=== PATIENT | female | born 1960 | race Caucasian/White ===

== ENCOUNTER 2016-05-29 08:43 | Day surgery (SDC) | payer MEDICAID ==
[2016-05-26 10:20] VITALS: BMI 25.1
[~2016-05-29 08:43] MED LIST: LACTATED RINGERS 1,000 ML IV SCH
[2016-05-29] MEDS ORDERED: LIDOCAINE 1% 20 ML VIAL (10MG/ML) FOR IV START INTRADERMA ONE (10:18)
[2016-05-29 10:20] VITALS: RESP 16; TEMP 97.4
[2016-05-29] MEDS ORDERED: LIDOCAINE 1% INJ 10MG/ML (20 ML MDV) ONE (10:32)
[2016-05-29] MEDS ORDERED: PROPOFOL 10 MG/ML 20 ML VIAL IV ONE (10:32)
--- NOTE | 2016-05-29 10:49 | P.PCN ---
Date of Procedure: 05/29/16 Procedure(s) Performed: BRIEF HISTORY: Patient is a 55-year-old pleasant white female, scheduled for an elective colonoscopy as a part of screening for colorectal neoplasia. PROCEDURE PERFORMED: Colonoscopy. PREOPERATIVE DIAGNOSIS: Screening for colon cancer. IV sedation per Anesthesia. PROCEDURE: After informed consent was obtained, the patient, was brought into the endoscopy unit. IV conscious sedation was administered by Anesthesia under continuous monitoring. External rectal examination was normal. Initially the Olympus CF-160 flexible video colonoscope was then inserted in the rectum, gradually advanced into the cecum without any difficulty. Careful examination was performed as the scope was gradually being withdrawn. Ileocecal valve and the appendiceal orifice were visualized and appeared normal. Prep was excellent. Mucosa of the cecum, ascending colon, transverse colon, descending colon, sigmoid colon, and rectum appeared normal. Retroflexion was performed in the rectum and no lesions were seen. The patient tolerated the procedure well. IMPRESSION: Normal-appearing colon from rectum to cecum with no evidence of colitis or colorectal neoplasia . RECOMMENDATIONS: Findings of this examination were discussed with the patient as well as a family. She was advised to have a repeat screening colonoscopy in 10 years.
[2016-05-29 10:57] VITALS: BP 113/75
[2016-05-29 11:11] VITALS: PULSE 73
== END 2016-05-29 11:37 | disposition home or self-care (01) ==
LOC: ORWHC2ENDO 08:43
PROVIDERS: ATTEND Internal Medicine Gastroenterology
DX: Z12.11 Encounter for screening for malignant neoplasm of colon (principal); Z88.2 Allergy status to sulfonamides
CPT/HCPCS: 81025; J2001; J2704; G0121

== ENCOUNTER → 2016-06-15 | Outpatient (CLI) | payer MEDICAID ==
--- NOTE | 2016-06-16 08:56 | MM ---
Reason for exam: screening (asymptomatic). Last mammogram was performed 1 year ago. History: Patient had first child at age 37. Family history of breast cancer in cousin at age 61, breast cancer in mother at age 66, and breast cancer in grandmother at age 90. Physical Findings: A clinical breast exam by your physician is recommended on an annual basis and results should be correlated with mammographic findings. MG 3D Screening Mammo W/Cad Bilateral CC and MLO view(s) were taken. Prior study comparison: June 13, 2015, right breast MG 3d work up w/cad RT. June 10, 2015, bilateral MG screening mammo w CAD. Benign calcifications bilaterally. No significant changes when compared with prior studies. ASSESSMENT: Benign, BI-RAD 2 RECOMMENDATION: Routine screening mammogram of both breasts in 1 year.
== END | disposition home or self-care (01) ==
LOC: RADMAMWWP 07:57
PROVIDERS: ATTEND Obstetrics & Gynecology
DX: Z12.31 Encounter for screening mammogram for malignant neoplasm of breast (principal); Z80.3 Family history of malignant neoplasm of breast
CPT/HCPCS: 77063; G0202

== ENCOUNTER → 2016-06-15 | Outpatient (CLI) | payer MEDICAID ==
--- NOTE | 2016-06-15 19:57 | BD ---
EXAMINATION TYPE: MG DEXA axial skeleton. DATE OF EXAM: 06/15/2016 8:13 AM COMPARISON: 2003 CLINICAL HISTORY: 56-year-old female post menopausal Height: 5'9 Weight: 172 FRAX RISK QUESTIONS: Alcohol (3 or more units per day): no Family History (Parent hip fracture): no Glucocorticoids (More than 3mos): no (Ex: prednisone, prednisolone, methylprednisolone, dexamethasone, and hydrocortisone). History of Fracture in Adulthood: no Secondary Osteoporosis: 1. Type 1 Diabetes: no 2. Hyperthyroidism: no 3. Menopause before 45: no 4. Malnutrition: no 5. Chronic liver disease: no Rheumatoid Arthritis: no Current Tobacco Use: no RISK FACTORS HISTORY OF: Family History of Osteoporosis: yes Active: no If Premenopausal, do you have irregular periods: MEDICATIONS: Additional Medications: no Additional History: post menopausal EXAM MEASUREMENTS: Bone mineral densitometry was performed using the [employer] System. Bone mineral density as measured about the Lumbar spine is: ----- L1-L4(G/cm2): 0.4 T Score Values are as follows: ----- L2: 0.5 ----- L3: 0.1 ----- L4: 0.3 ----- L1-L4: 0.4 Bone mineral density has: Decreased -2.1% since study of: 06/19/2003 Bone mineral density about the R hip (g/cm2): 1.135 Bone mineral density about the L hip (g/cm2): 1.066 T Score values are as follows: -----R Neck: 0.2 -----L Neck: 0.7 -----R Intertrochanter: 0.6 -----L Intertrochanter: 0.7 Bone mineral density has: Decreased -4.1% since study of: 06/19/2003 IMPRESSION: Normal (Values between +1 and -1 indicate normal bone mass) as measured in the lumbar spine and both hips. Rescreen in 5 years. NOTE: T-SCORE=SD OF THE YOUNG ADULT MEAN.
== END | disposition home or self-care (01) ==
LOC: RADBDWWP 07:59
PROVIDERS: ATTEND Family Medicine
DX: N95.1 Menopausal and female climacteric states (principal)
CPT/HCPCS: 77080

== ENCOUNTER → 2016-11-30 | Outpatient (CLI) | payer MEDICAID | END | disposition home or self-care (01) | LOC: LABWHC1 08:03 | PROVIDERS: ATTEND Family Medicine | DX: Z09 Encounter for follow-up examination after completed treatment for conditions other than malignant neoplasm (principal); Z82.49 Family history of ischemic heart disease and other diseases of the circulatory system | CPT/HCPCS: 36415; 80061; 83090; 86141 ==

== ENCOUNTER → 2017-06-17 | Outpatient (CLI) | payer MEDICAID ==
--- NOTE | 2017-06-18 12:33 | MM ---
Reason for exam: screening (asymptomatic). Last mammogram was performed 1 year ago. History: Patient had first child at age 37. Family history of breast cancer in cousin at age 61, breast cancer in mother at age 66, and breast cancer in grandmother at age 90. Physical Findings: A clinical breast exam by your physician is recommended on an annual basis and results should be correlated with mammographic findings. MG 3D Screening Mammo W/Cad Bilateral CC and MLO view(s) were taken. Prior study comparison: June 15, 2016, bilateral MG 3d screening mammo w/cad. June 13, 2015, right breast MG 3d work up w/cad RT. The breast tissue is heterogeneously dense. This may lower the sensitivity of mammography. No suspicious abnormality. ASSESSMENT: Negative, BI-RAD 1 RECOMMENDATION: Routine screening mammogram of both breasts in 1 year.
== END | disposition home or self-care (01) ==
LOC: RADMAMWWP 08:48
PROVIDERS: ATTEND Obstetrics & Gynecology
DX: Z12.31 Encounter for screening mammogram for malignant neoplasm of breast (principal); Z80.3 Family history of malignant neoplasm of breast
CPT/HCPCS: 77063; 77067

== ENCOUNTER → 2018-06-23 | Outpatient (CLI) | payer MEDICAID ==
--- NOTE | 2018-06-27 08:37 | MM ---
Reason for exam: screening (asymptomatic). Last mammogram was performed 1 year ago. History: Patient is postmenopausal and had first child at age 37. Family history of breast cancer in maternal cousin at age 61, breast cancer in mother at age 66, and breast cancer in grandmother at age 90. Physical Findings: A clinical breast exam by your physician is recommended on an annual basis and results should be correlated with mammographic findings. MG 3D Screening Mammo W/Cad Bilateral CC and MLO view(s) were taken. Prior study comparison: June 17, 2017, bilateral MG 3d screening mammo w/cad. June 15, 2016, bilateral MG 3d screening mammo w/cad. The breast tissue is heterogeneously dense. This may lower the sensitivity of mammography. There is no discrete abnormality. ASSESSMENT: Negative, BI-RAD 1 RECOMMENDATION: Routine screening mammogram of both breasts in 1 year.
== END | disposition home or self-care (01) ==
LOC: RADMAMWWP 08:17
PROVIDERS: ATTEND Obstetrics & Gynecology
DX: Z12.31 Encounter for screening mammogram for malignant neoplasm of breast (principal); Z80.3 Family history of malignant neoplasm of breast
CPT/HCPCS: 77063; 77067

== ENCOUNTER → 2019-06-26 | Outpatient (CLI) | payer MEDICAID ==
[2019-06-26 09:17] LABS: T4, Free (Free Thyroxine) 0.86 ng/dL (0.78-2.19)
--- NOTE | 2019-06-26 10:52 | MM ---
Reason for exam: screening (asymptomatic). Last mammogram was performed 1 year ago. History: Patient is postmenopausal and had first child at age 37. Family history of breast cancer in maternal cousin at age 61, breast cancer in mother at age 66, and breast cancer in grandmother at age 90. Physical Findings: A clinical breast exam by your physician is recommended on an annual basis and results should be correlated with mammographic findings. MG 3D Screening Mammo W/Cad Bilateral CC and MLO view(s) were taken. Prior study comparison: June 23, 2018, bilateral MG 3d screening mammo w/cad. June 17, 2017, bilateral MG 3d screening mammo w/cad. The breast tissue is heterogeneously dense. This may lower the sensitivity of mammography. No suspicious abnormality. No significant changes when compared with prior studies. ASSESSMENT: Negative, BI-RAD 1 RECOMMENDATION: Routine screening mammogram of both breasts in 1 year.
== END | disposition home or self-care (01) ==
LOC: RADMAMWWP 07:50
PROVIDERS: ATTEND Obstetrics & Gynecology
DX: Z12.31 Encounter for screening mammogram for malignant neoplasm of breast (principal); Z80.3 Family history of malignant neoplasm of breast; R53.83 Other fatigue; Z78.0 Asymptomatic menopausal state
CPT/HCPCS: 77063; 77067; 80061; 82947; 84439; 84443; 86762

== ENCOUNTER → 2020-07-11 | Outpatient (CLI) | payer MEDICAID ==
--- NOTE | 2020-07-12 11:48 | MM ---
Reason for exam: screening (asymptomatic). Last mammogram was performed 1 year ago. History: Patient is postmenopausal and had first child at age 37. Family history of breast cancer in maternal cousin at age 61, breast cancer in mother at age 66, and breast cancer in grandmother at age 90. Took hormonal contraceptives for 5 years. Physical Findings: A clinical breast exam by your physician is recommended on an annual basis and results should be correlated with mammographic findings. MG 3D Screening Mammo W/Cad Bilateral CC and MLO view(s) were taken. Prior study comparison: June 26, 2019, bilateral MG 3d screening mammo w/cad. June 23, 2018, bilateral MG 3d screening mammo w/cad. The breast tissue is heterogeneously dense. This may lower the sensitivity of mammography. Focal asymmetry lower outer left breast zone B. This finding is changed when compared with previous exams. ASSESSMENT: Incomplete: need additional imaging evaluation, BI-RAD 0 RECOMMENDATION: Special view mammogram of the left breast. If lesion persists on supplemental views, image directed ultrasound is recommended. [facility] will attempt to contact patient to return for supplemental views and ultrasound if indicated.
== END | disposition home or self-care (01) ==
LOC: RADMAMWWP 07:49
PROVIDERS: ATTEND Obstetrics & Gynecology
DX: Z12.31 Encounter for screening mammogram for malignant neoplasm of breast (principal); R92.8 Other abnormal and inconclusive findings on diagnostic imaging of breast
CPT/HCPCS: 77063; 77067

== ENCOUNTER → 2020-07-17 | Outpatient (CLI) | payer MEDICAID ==
--- NOTE | 2020-07-17 10:04 | MM ---
Reason for exam: additional evaluation requested from abnormal screening. Last mammogram was performed less than 1 month ago. History: Patient is postmenopausal and had first child at age 37. Family history of breast cancer in maternal cousin at age 61, breast cancer in mother at age 66, and breast cancer in grandmother at age 90. Took hormonal contraceptives for 5 years. Physical Findings: Nurse did not find any significant physical abnormalities on exam. MG 3D Work Up W/Cad LT Spot compression CC, spot compression MLO, and ML view(s) were taken of the left breast. Prior study comparison: July 11, 2020, bilateral MG 3d screening mammo w/cad. June 26, 2019, bilateral MG 3d screening mammo w/cad. The breast tissue is heterogeneously dense. This may lower the sensitivity of mammography. Central focal asymmetry disperses on additional views. These results were verbally communicated with the patient and result sheet given to the patient on 07/17/20. ASSESSMENT: Negative, BI-RAD 1 RECOMMENDATION: Return to routine screening mammogram schedule for both breasts.
== END ==
LOC: RADMAMWWP 08:13
PROVIDERS: ATTEND Obstetrics & Gynecology
DX: N64.89 Other specified disorders of breast (principal); Z78.0 Asymptomatic menopausal state; Z80.3 Family history of malignant neoplasm of breast
CPT/HCPCS: 77061; 77065

== ENCOUNTER → 2020-07-17 | Outpatient (CLI) | payer MEDICAID ==
[2020-07-18 01:10] LABS: Chol/HDL Ratio 4.05
== END | disposition home or self-care (01) ==
LOC: LABWHC1 08:17
PROVIDERS: ATTEND Family Medicine
DX: E78.00 Pure hypercholesterolemia, unspecified (principal)
CPT/HCPCS: 36415; 80061

== ENCOUNTER → 2021-02-19 | Outpatient (CLI) | payer MEDICAID ==
[2021-02-19 11:12] LABS: Basophils # (A) 0.03 X 10*3/uL (0.00-0.10); Basophils % (A) 0.5 %; Eosinophils # (A) 0.14 X 10*3/uL (0.04-0.35); Eosinophils % (A) 2.4 %; HGB 14.5 g/dL (12.0-15.0); Lymphocytes # (A) 1.75 X 10*3/uL (0.90-5.00); Lymphocytes % (A) 29.6 %; MCH 29.1 pg (27.0-32.0); MCHC 32.2 g/dL (32.0-37.0); MCV 90.4 fL (80.0-97.0); Mean Platelet Volume 9.3 fL (9.5-12.2); Monocytes # (A) 0.54 X 10*3/uL (0.20-1.00); Monocytes % (A) 9.1 %; Neutrophils # (A) 3.42 X 10*3/uL (1.80-7.70); Neutrophils % (A) 57.9 %; Platelet Count 294 X 10*3/uL (140-440); RBC 4.98 X 10*6/uL (4.10-5.20); RDW 12.5 % (11.5-14.5); WBC 5.91 X 10*3/uL (4.50-10.00)
[2021-02-19 21:26] LABS: Chol/HDL Ratio 4.47 Ratio; HDL Cholesterol 51.5 mg/dL (40.00-60.00); LDL Cholesterol,Calculated 144.1 mg/dL (0.0-131.0); VLDL Calculation 34.4 mg/dL (5.00-40.00)
[2021-02-20 10:50] LABS: African American GFR (CKD) 80.9 (60.0-200.0); Albumin 4.4 g/dL (3.8-4.9); Albumin/Globulin Ratio 1.53 (1.60-3.17); Anion Gap 16.3 mmol/L (4.00-12.00); BUN/Creat Ratio 15.52 Ratio (12.00-20.00); Calcium 9.8 mg/dL (8.7-10.3); Carbon Dioxide 22.2 mmol/L (21.6-31.8); Globulin 2.9 g/dL (1.6-3.3); Non-African American GFR(CKD) 69.8 (60.0-200.0); Potassium 4.1 mmol/L (3.5-5.5); Total Bilirubin 0.5 mg/dL (0.30-1.20); Total Protein 7.3 g/dL (6.2-8.2)
== END | disposition home or self-care (01) ==
LOC: LABWHC1 07:21
PROVIDERS: ATTEND Family Medicine
DX: Z13.29 Encounter for screening for other suspected endocrine disorder (principal); E78.00 Pure hypercholesterolemia, unspecified
CPT/HCPCS: 36415; 80053; 80061; 84443; 85025

== ENCOUNTER → 2021-07-15 | Outpatient (CLI) | payer MEDICAID ==
--- NOTE | 2021-07-16 08:53 | MM ---
Reason for exam: screening (asymptomatic). Last mammogram was performed 1 year ago. History: Patient is postmenopausal and had first child at age 37. Family history of breast cancer in maternal cousin at age 61, breast cancer in mother at age 66, and breast cancer in grandmother at age 90. Took hormonal contraceptives for 5 years. Physical Findings: A clinical breast exam by your physician is recommended on an annual basis and results should be correlated with mammographic findings. MG 3D Screening Mammo W/Cad Bilateral CC and MLO view(s) were taken. Prior study comparison: July 17, 2020, left breast MG 3d work up w/cad LT. July 11, 2020, bilateral MG 3d screening mammo w/cad. The breast tissue is heterogeneously dense. This may lower the sensitivity of mammography. There is no discrete abnormality. No significant changes when compared with prior studies. ASSESSMENT: Negative, BI-RAD 1 RECOMMENDATION: Routine screening mammogram of both breasts in 1 year.
== END | disposition home or self-care (01) ==
LOC: RADMAMWWP 07:07
PROVIDERS: ATTEND Obstetrics & Gynecology
DX: Z12.31 Encounter for screening mammogram for malignant neoplasm of breast (principal); Z78.0 Asymptomatic menopausal state; Z80.3 Family history of malignant neoplasm of breast
CPT/HCPCS: 77063; 77067

== ENCOUNTER → 2021-07-24 | Outpatient (CLI) | payer MEDICAID ==
--- NOTE | 2021-07-24 16:43 | MR ---
EXAMINATION TYPE: MR ankle LT wo con DATE OF EXAM: 07/24/2021 COMPARISON: Radiograph 07/07/2021 HISTORY: 61-year-old female M79.672, S93.492A, S93.422A. Left ankle and foot pain, swelling, and limi dinesh movement since 2021 due to fall TECHNIQUE: Multiplanar, multisequence images of the left ankle were obtained without IV contrast. FINDINGS: There is an obliquely oriented fracture which involves the mid to lateral distal and dorsal aspect of the navicular. There is intra-articular extension navicular middle cuneiform joint but no significan t articular surface offset. Corresponding edematous changes overlying soft tissue swelling. Additional focal marrow edema medial navicular at the insertion of the posterior tibial tendon. No fr ank tear is identified here. Some subtle linear low signal representing incomplete fracture or signif icant focal bone bruise. Some scattered smaller areas of increased signal along the talar side of the posterior subtalar joint and inferior medial aspect of as well as proximal dorsal aspect of the informed. Anterior extensor tendons and syndesmosis appear intact. Mild tenosynovial fluid along the lateral peroneal tendons. Lateral ligamentous complex appears gross ly intact. Mild tenosynovial fluid along the inframalleolar posterior tibial tendon. Medial flexor tendons other cat appear intact. Deltoid ligament appears grossly intact. 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 The tibiotalar joint appears intact. Achilles tendon and origin of the plantar fascia are intact. Preserved fatty signal within the sinus Tarsi. The tarsal tunnel is clear. Some edema involving the m edial plantar musculature suggesting strain. Some nonspecific soft tissue swelling and edema within posterior Kager's fat and small effusion along the posterior tibiotalar joint. IMPRESSION: 1. Obliquely oriented, nondisplaced, acute to subacute fracture involving the mid to lateral aspect o f the distal, dorsal navicular bone. Intra-articular extension to the middle cuneiform joint. Promine nt associated soft tissue swelling. 2. Either a large bone bruise versus incomplete fracture of the medial navicular at the posterior tib ial tendon insertion. No tendon tear seen. 3. Additional smaller bone bruises dorsal aspect of the middle cuneiform and talar side of the production team manager ior subtalar joint. 4. 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
== END | disposition home or self-care (01) ==
LOC: RADMRIMAIN 14:32
PROVIDERS: ATTEND Podiatrist
DX: S92.255A Nondisplaced fracture of navicular [scaphoid] of left foot, initial encounter for closed fracture (principal); S90.02XA Contusion of left ankle, initial encounter; Q66.89 Other specified congenital deformities of feet; Q78.8 Other specified osteochondrodysplasias; W19.XXXA Unspecified fall, initial encounter

== ENCOUNTER → 2023-03-08 | Outpatient (CLI) | payer MEDICAID | END | disposition home or self-care (01) | LOC: LABWHC1 15:36 | PROVIDERS: ATTEND Family Medicine | DX: Z53.9 Procedure and treatment not carried out, unspecified reason (principal) ==

== ENCOUNTER → 2023-03-09 | Outpatient (CLI) | payer MEDICAID ==
[2023-03-09 10:51] LABS: Basophils # (A) 0.03 X 10*3/uL (0.00-0.10); Basophils % (A) 0.6 %; Eosinophils # (A) 0.14 X 10*3/uL (0.04-0.35); Eosinophils % (A) 2.8 %; HCT 44.2 % (37.2-46.3); HGB 14.1 d/dL (12.0-15.0); Lymphocytes # (A) 1.48 X 10*3/uL (0.90-5.00); Lymphocytes % (A) 29.6 %; MCH 29.7 pg (27.0-32.0); MCHC 31.9 d/dL (32.0-37.0); MCV 93.2 FL (80.0-97.0); Mean Platelet Volume 9.1 FL (9.5-12.2); Monocytes # (A) 0.48 X 10*3/uL (0.20-1.00); Monocytes % (A) 9.6 %; NRBC Per 100 WBC 0 X 10*3/uL (0.00-0.01); Neutrophils # (A) 2.86 X 10*3/uL (1.80-7.70); Neutrophils % (A) 57.2 %; Platelet Count 285 X 10*3/uL (140-440); RBC 4.74 X 10*6/uL (4.10-5.20); RDW 12.7 % (11.5-14.5)
[2023-03-09 11:18] LABS: ALT 18 U/L (8-44); AST 20 U/L (13-35); Albumin 4.6 d/dL (3.8-4.9); Albumin/Globulin Ratio 1.64 Ratio (1.60-3.17); Alkaline Phosphatase 105 U/L (41-126); BUN/Creat Ratio 16.75 Ratio (12.00-20.00); Blood Urea Nitrogen 13.4 mg/dL (9.0-27.0); Calcium 10.2 mg/dL (8.7-10.3); Carbon Dioxide 26.1 mmol/L (21.6-31.8); Chloride 104 mmol/L (96-109); Chol/HDL Ratio 3.58 Ratio; Globulin 2.8 d/dL (1.6-3.3); Glucose 110 mg/dL (70-110); LDL Cholesterol,Calculated 132.5 mg/dL (0.0-131.0); Potassium 4.9 mmol/L (3.5-5.5); Sodium 142 mmol/L (135-145); Total Bilirubin 0.4 mg/dL (0.3-1.2); Total Protein 7.4 d/dL (6.2-8.2)
== END | disposition home or self-care (01) ==
LOC: LABWHC1 07:45
PROVIDERS: ATTEND Family Medicine
DX: Z13.0 Encounter for screening for diseases of the blood and blood-forming organs and certain disorders involving the immune mechanism (principal); Z13.21 Encounter for screening for nutritional disorder; Z13.220 Encounter for screening for lipoid disorders; Z13.29 Encounter for screening for other suspected endocrine disorder
CPT/HCPCS: 36415; 80053; 80061; 82306; 85025

== ENCOUNTER → 2023-07-26 | Outpatient (CLI) | payer OTHER ==
--- NOTE | 2023-07-27 14:06 | MM ---
Reason for Exam: Screening (asymptomatic). Last screening mammogram was performed 12 month(s) ago. Patient History: Menarche at age 18. First Full-Term at age 37. Late child-bearing (after 30). Postmenopausal. Patient has history of breast feeding. Patient used Hormonal Contraceptives for 5 years. Maternal grandmother had breast cancer, age 90. Maternal cousin had breast cancer, age 61. Mother had breast cancer, age 66. Risk Values: Hue 5 year model risk: 2.8%. NCI Lifetime model risk: 12.4%. Prior Study Comparison: 06/17/2017 Bilateral Screening Mammogram, [facility]. 06/23/2018 Bilateral Screening Mammogram, [facility]. 06/26/2019 Bilateral Screening Mammogram, [facility]. 07/11/2020 Bilateral Screening Mammogram, [facility]. 07/17/2020 Left Diagnostic Mammogram, [facility]. 07/15/2021 Bilateral Screening Mammogram, [facility]. 07/22/2022 Bilateral MG 3D screening mammo w/cad, [facility]. Tissue Density: The breasts are heterogeneously dense, which may obscure small masses. Findings: Analyzed By CAD. There is no suspicious group of microcalcifications or new suspicious mass. Overall Assessment: Negative, BI-RAD 1 Management: Screening Mammogram of both breasts in [address] [facility] will attempt to contact patient to return for supplemental views and ultrasound if indicated. Patient should continue monthly self-breast exams. A clinical breast exam by your physician is recommended on an annual basis. This exam should not preclude additional follow-up of suspicious palpable abnormalities. Note on Hue scores and lifetime risk: 1. A Hue score greater than 3% is considered moderate risk. If this is the case, consider specialist referral to assess eligibility for a risk reducing agent. 2. If overall lifetime risk for the development of breast cancer is 20% or higher, the patient may qualify for future screening with alternating mammogram and breast MRI. Electronically signed and approved by: Facundo Carter DO
== END | disposition home or self-care (01) ==
LOC: RADMAMWWP 08:37
PROVIDERS: ATTEND Obstetrics & Gynecology
DX: Z12.31 Encounter for screening mammogram for malignant neoplasm of breast (principal); Z80.3 Family history of malignant neoplasm of breast; Z78.0 Asymptomatic menopausal state
CPT/HCPCS: 77063; 77067

== ENCOUNTER → 2024-03-15 | Outpatient (CLI) | payer OTHER ==
[2024-03-15 10:32] LABS: Basophils # (A) 0.03 X 10*3/uL (0.00-0.10); Basophils % (A) 0.5 %; Eosinophils # (A) 0.15 X 10*3/uL (0.04-0.35); Eosinophils % (A) 2.4 %; HCT 45.1 % (37.2-46.3); HGB 14.6 g/dL (12.0-15.0); Lymphocytes # (A) 1.64 X 10*3/uL (0.90-5.00); Lymphocytes % (A) 26.7 %; MCH 29.7 pg (27.0-32.0); MCHC 32.4 g/dL (32.0-37.0); MCV 91.9 FL (80.0-97.0); Mean Platelet Volume 9.2 FL (9.5-12.2); Monocytes # (A) 0.58 X 10*3/uL (0.20-1.00); Monocytes % (A) 9.4 %; NRBC Per 100 WBC 0 X 10*3/uL (0.00-0.01); Neutrophils # (A) 3.72 X 10*3/uL (1.80-7.70); Neutrophils % (A) 60.7 %; Platelet Count 272 X 10*3/uL (140-440); RBC 4.91 X 10*6/uL (4.10-5.20); RDW 12.6 % (11.5-14.5); WBC 6.14 X 10*3/uL (4.50-10.00)
[2024-03-15 10:48] LABS: ALT 20 U/L (8-44); AST 22 U/L (13-35); Albumin 4.3 g/dL (3.8-4.9); Albumin/Globulin Ratio 1.48 Ratio (1.60-3.17); Alkaline Phosphatase 115 U/L (41-126); BUN/Creat Ratio 16.78 Ratio (12.00-20.00); Blood Urea Nitrogen 15.1 mg/dL (9.0-27.0); Calcium 9.7 mg/dL (8.7-10.3); Chloride 104 mmol/L (96-109); Chol/HDL Ratio 4.12 Ratio; Globulin 2.9 g/dL (1.6-3.3); Glucose 107 mg/dL (70-110); Potassium 4.3 mmol/L (3.5-5.5); Sodium 141 mmol/L (135-145); Total Bilirubin 0.6 mg/dL (0.3-1.2); Total Protein 7.2 g/dL (6.2-8.2)
== END | disposition home or self-care (01) ==
LOC: LABWHC1 07:06
PROVIDERS: ATTEND Family Medicine
CPT/HCPCS: 36415; 80053; 80061; 84443; 85025

== ENCOUNTER → 2024-08-22 | Outpatient (CLI) | payer OTHER ==
--- NOTE | 2024-08-22 09:25 | MM ---
Reason for Exam: Screening (asymptomatic). Last mammogram was performed 1 year(s) and 1 month(s) ago. Patient History: Menarche at age 18. First Full-Term at age 37. Late child-bearing (after 30). Postmenopausal. Patient has history of breast feeding. Patient used Hormonal Contraceptives for 5 years. Maternal grandmother had breast cancer, age 90. Maternal cousin had breast cancer, age 61. Mother had breast cancer, age 66. Sister had breast cancer at or over age 50. Risk Values: Hue 5 year model risk: 4.2%. NCI Lifetime model risk: 17.1%. Prior Study Comparison: 06/17/2017 Bilateral Screening Mammogram, [facility]. 06/23/2018 Bilateral Screening Mammogram, [facility]. 06/26/2019 Bilateral Screening Mammogram, [facility]. 07/11/2020 Bilateral Screening Mammogram, [facility]. 07/17/2020 Left Diagnostic Mammogram, [facility]. 07/15/2021 Bilateral Screening Mammogram, [facility]. 07/22/2022 Bilateral MG 3D screening mammo w/cad, [facility]. 07/26/2023 Bilateral MG 3D screening mammo w/cad, [facility]. Tissue Density: The breasts are heterogeneously dense, which may obscure small masses. Findings: Analyzed By CAD. There is no suspicious group of microcalcifications or new suspicious mass in either breast. Overall Assessment: Negative, BI-RAD 1 Management: Screening Mammogram of both breasts in 1 year. See note below in regards to the patient's increased 5 year Hue score. Patient should continue monthly self-breast exams. A clinical breast exam by your physician is recommended on an annual basis. This exam should not preclude additional follow-up of suspicious palpable abnormalities. Note on Hue scores and lifetime risk: 1. A Hue score greater than 3% is considered moderate risk. If this is the case, consider specialist referral to assess eligibility for a risk reducing agent. 2. If overall lifetime risk for the development of breast cancer is 20% or higher, the patient may qualify for future screening with alternating mammogram and breast MRI. [facility], , 08/22/2024 9:22 AM. Electronically signed and approved by: Michele Chacon M.D. Radiologist
== END | disposition home or self-care (01) ==
LOC: RADMAMWWP 08:11
PROVIDERS: ATTEND Obstetrics & Gynecology
DX: Z12.31 Encounter for screening mammogram for malignant neoplasm of breast (principal); R92.333 Mammographic heterogeneous density, bilateral breasts; Z78.0 Asymptomatic menopausal state; Z80.3 Family history of malignant neoplasm of breast; Z92.0 Personal history of contraception
CPT/HCPCS: 77063; 77067